=== PATIENT | male | born 1980 | race Caucasian/White ===

== ENCOUNTER 2017-09-23 08:35 | Emergency (ER) | payer OTHER, BC ==
[2017-09-23] MEDS ORDERED: Iopamidol 755 MG/ML 500 ML Multipack Bottle IVPUSH STA (08:48)
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
[2017-09-23] MEDS ORDERED: Diphtheria,Pertussis(Acell),Tetanus Vaccine 0.5 ML Syringe IM ONE (09:06)
[2017-09-23 09:10] LABS: CHLORIDE,CL 107 mmol/L (98-110); SODIUM,NA 140 mmol/L (136-146)
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
[2017-09-23] MEDS ORDERED: HYDROmorphone 1 MG/ML Syringe IVPUSH ONE (10:08)
[2017-09-23] MEDS ORDERED: Ondansetron 4 MG/2 ML SDV IVPUSH ONE (10:08)
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
[2017-09-23] MEDS ORDERED: ceFAZolin 2 GM in Premix Bag 1 BAG IV SCH (10:30)
[2017-09-23 11:21] VITALS: BP 121/76
== END 2017-09-23 10:48 ==
LOC: MW.ED 08:35
DX: S02.82XA Fracture of other specified skull and facial bones, left side, initial encounter for closed fracture (principal); S22.31XA Fracture of one rib, right side, initial encounter for closed fracture; S22.32XA Fracture of one rib, left side, initial encounter for closed fracture; S01.111A Laceration without foreign body of right eyelid and periocular area, initial encounter; S42.002A Fracture of unspecified part of left clavicle, initial encounter for closed fracture; H11.32 Conjunctival hemorrhage, left eye; S00.511A Abrasion of lip, initial encounter; S50.812A Abrasion of left forearm, initial encounter; V49.9XXA Car occupant (driver) (passenger) injured in unspecified traffic accident, initial encounter
CPT/HCPCS: 36415; 70450; 70486; 71260; 72125; 73030; 74177; 80053; 85025; 90715; 93005; 96365; 96375; 99285; G0480; J0690; J1170; J2405; Q9967; 99283